=== PATIENT | female | born 1960 | race Caucasian/White ===

== ENCOUNTER 2017-04-24 23:00 | Inpatient (IN) | payer OTHER ==
[~2017-04-24] VITALS: Ht 162.6 cm; Wt 90.7 kg
--- NOTE | ~2017-04-24 | DS ---
Unit #: [id number] #: [id number] Patient: MARILEE ESTRADA [id number] [facility] [address] [place] [address] [id number] I MR#: [id number] NAME: MARILEE ESTRADA ROOM: P207 Age: 57 Sex: F Admission Date: 04/25/2017 : 1960 Discharge Date: 04/29/2017 Attending Physician: Rickey Moyer M.D. Primary Care Physician: Marco Perez M.D. DISCHARGE SUMMARY REASON FOR ADMISSION Marilee is a 57-year-old woman, who presented to the [facility], reporting difficulty with depression and suicidal ideation, cocaine use and chronic pain. She was sent to EPS and then transferred to [facility]. LABORATORY DATA Please see hospital chart. HOSPITAL COURSE Marilee was admitted and placed on suicide precautions. Effexor XR 150 mg daily for depression, Seroquel 100 mg in the morning and 400 mg at bedtime for anxiety and sleep were also started. The patient continued on ReVia 50 mg at bedtime for alcohol prophylaxis. She complained significantly of pain throughout the hospitalization and Motrin was provided with some relief. She also tended to use a wheelchair in the milieu, although she was encouraged not to do so for the purpose of improving her ambulatory abilities. Her mood gradually improved and on the date of discharge, she was able to contract for safety with no suicidal ideation, intent, or plan. DISCHARGE DIAGNOSES AXIS I: Major depression, polysubstance abuse by history. AXIS II: Histrionic personality traits. AXIS III: Chronic pain. AXIS IV: AXIS V: DISCHARGE INSTRUCTIONS [facility] with primary care physician and [facility]. DISCHARGE MEDICATIONS Effexor XR 150 mg daily for depression, Seroquel 100 mg b.i.d. and 400 mg at bedtime for mood stability, ReVia 50 mg at bedtime for alcoholism. CONDITION AT DISCHARGE Improved. PROGNOSIS Fair to good. DIET AND ACTIVITY Unit #: [id number] #: [id number] Patient: MARILEE ESTRADA Per primary care doctor. Dictated by... Rickey Moyer M.D. [facility]/yamile TD: 04/30/2017 03:01 JOB #: [id number] DISCHARGE SUMMARY Page 1 of 1 X Rickey Moyer MD DISCHARGE SUMMARY
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
[~2017-04-24 23:00] MED LIST: AUGMENTIN PO; CELEXA PO; CLEOCIN HCL300 M1 PO; FLEXERIL10 MG PO; HYDROCODONE-APA1 T51 PO; LORTAB 10-5001 EACH PO; ORUDIS75 M1 DOB; PREDNISONE5 M1 DOB; TRAZODONE HCL100 MG PO
[2017-04-25 09:41] LABS: BASOPHIL# 0.1 X10e3 (0-0.3); EOSINOPHIL# 0.3 X10e3 (0-0.7); EOSINOPHIL% 4.4 % (0.0-7.0); HEMATOCRIT 38.9 % (35.0-45.0); HEMOGLOBIN 12.8 gm/dL (12.0-16.0); LYMPHOCYTE# 2.5 X10e3 (1.0-3.5); LYMPHOCYTE% 39.1 % (17.0-45.0); MEAN CELL VOLUME 96.5 FL (83-96); MEAN CORPUSCULAR HEMOGLOBIN 31.9 PG (28-34); MEAN CORPUSCULAR HGB CONC 33.1 g/dL (30-36); MEAN PLATELET VOLUME 8.2 FL (6.5-11.5); MONOCYTE# 0.6 X10e3 (0-1.0); NEUTROPHIL# 2.9 X10e3 (1.5-7.1); NEUTROPHIL% 45.5 % (40-75); PLATELET COUNT 257 X10e3 (140-420); RED BLOOD COUNT 4.03 X10e (3.90-5.30); WHITE BLOOD COUNT 6.3 X10e3 (4.0-10.5)
[2017-04-25 09:44] LABS: DIFF IND NO
[2017-04-25 10:38] LABS: ALBUMIN SERUM 3.6 g/dL (3.5-5.0); BUN/CREATININE RATIO 22.5; CALCIUM SERUM 8.7 mg/dL (8.4-10.2); CREATININE SERUM 0.8 mg/dL (0.6-1.4); GLOM FILT RATE Estimated 83.1 mL/min (>60); POTASSIUM 4.2 mmol/L (3.5-5.1); PROTEIN TOTAL SERUM 6.2 g/dL (6.0-8.3)
== END 2017-04-29 12:43 | disposition home or self-care (01) | DRG 885 ==
LOC: UNDOADMIN 04-25 01:07 → P2S 04-25 01:07
PROVIDERS: Psychiatry & Neurology Psychiatry
DX: F33.2 Major depressive disorder, recurrent severe without psychotic features (principal); E66.01 Morbid (severe) obesity due to excess calories; F60.4 Histrionic personality disorder; G89.29 Other chronic pain; F17.210 Nicotine dependence, cigarettes, uncomplicated
CPT/HCPCS: 80053; 85025

== ENCOUNTER 2017-06-09 21:31 | Emergency (ER) | payer OTHER ==
[~2017-06-09] VITALS: Ht 162.6 cm; Wt 103.4 kg
--- NOTE | ~2017-06-09 | CR20 ---
[facility] A Service of [facility] RADIOLOGY TEXT RESULTS PATIENT: SMITH ESTRADA LOCATION: [facility] : [birth year] UNIT #: [id number] AGE: [address]: Mejia El MD SEX: F ORDER DR: [id number] [facility] [address]. [place], [place] [address] [id number] MR#: [id number] Acc #: [id number] NAME: SMITH ESTRADA : 1960 SEX: F STUDY DATE/TIME: 06/09/2017 22:06 UNIT: [facility] ROOM: STUDY DESCRIPTION: CR Ankle Min 3 Views Lt Attending Physician: Mejia El M.D. Ordering Physician: Osito Taarngo M.D. Primary Care Physician: Marco Perez M.D. MEDICAL IMAGING REPORT This report is preliminary unless electronic signature is present EXAM Left ankle, 3 views. HISTORY Ankle pain and swelling for 2 months. No recent injury. Ankle surgery 2 years ago. FINDINGS Three views of the left ankle demonstrate internal fixation of the distal tibia, with partly visualized intramedullary akosua extending across old healed fracture deformity distal tibial diaphysis. There is also an old fracture deformity of the distal fibular metaphysis. Moderately severe degenerative joint space narrowing in the tibiotalar joint. Generalized demineralization. Probable old screw tracks in the talus and calcaneus. IMPRESSION No acute findings. Old fractures of the distal tibia and fibula. Partly visualized internal fixation of the tibia. Generalized demineralization. No recent fracture. Dictated by... Henri Carolina M.D. THIS IS AN ELECTRONICALLY VERIFIED REPORT Henri Carolina M.D. at 06/11/2017 4:43 AM DFL/ema TD: 06/10/2017 21:59 JOB #: [id number] MEDICAL IMAGING REPORT [facility] A Service of [facility] RADIOLOGY TEXT RESULTS PATIENT: SMITH ESTRADA [facility] #: [id number] : [birth year] UNIT #: [id number] AGE: [address]: Mejia El MD SEX: F ORDER DR: Page 1 of 1 COPY
[2017-06-09 22:42] LABS: BUN/CREATININE RATIO 8.57; CALCIUM SERUM 8.8 mg/dL (8.4-10.2); CREATININE SERUM 0.7 mg/dL (0.6-1.4); GLOM FILT RATE Estimated 97.5 mL/min (>60); POTASSIUM 3.9 mmol/L (3.5-5.1)
[2017-06-09 23:08] LABS: AMPHETAMINE NEG (NEG); BARBITURATES NEG (NEG); BENZODIAZEPINES NEG (NEG); COCAINE NEG (NEG); MARIJUANA NEG (NEG); OPIATES NEG (NEG); TRICYCLIC ANTIDEPRESSANTS NEG (NEG); U METHADONE NEG (NEG)
== END 2017-06-10 03:30 | disposition short-term general hospital (02) ==
LOC: CED 21:31
PROVIDERS: Emergency Medicine
DX: R45.851 Suicidal ideations (principal); F10.10 Alcohol abuse, uncomplicated; Y90.6 Blood alcohol level of 120-199 mg/100 ml; M25.572 Pain in left ankle and joints of left foot; G89.29 Other chronic pain; Z79.899 Other long term (current) drug therapy
CPT/HCPCS: 36415; 73610; 80048; 80307; 99285; G0480

== ENCOUNTER 2017-06-09 23:00 | Inpatient (IN) | payer OTHER ==
[~2017-06-09] VITALS: Ht 162.6 cm; Wt 90.7 kg
--- NOTE | ~2017-06-09 | CO ---
Unit #: [id number] #: [id number] Patient: SMITH ESTRADA [id number] [place] [address] [id number] MR#: [id number] NAME: SMITH ESTRADA ROOM: 71 Age: 57 Sex: F Admission Date: 06/10/2017 : 1960 Attending Physician: Rickey Moyer M.D. Primary Care Physician: Marco Perez M.D. Consultation Date: 06/10/2017 CONSULTATION REPORT ORDERING PROVIDER Dr. Moyer. REASON FOR CONSULTATION Left ankle pain. SUBJECTIVE The patient reports that 2 years ago, she broke her ankle. However, she went back to [facility] a couple of months ago for continued ankle pain and they said that her ankle was still broken. She has had multiple surgeries on this left leg and she is supposed to be seeing Orthopedics. She reports that she is unable to walk very far or for very long and usually uses a wheelchair. She reports decreased range of motion and pain in that left ankle. OBJECTIVE Significant ecchymoses noted on the dorsal side of her left ankle and foot. She has decreased range of motion with flexion and plantar flexion. There is minimal swelling present as well. ASSESSMENT Left ankle pain and swelling. PLAN Plan is to put the patient in a boot and have her follow up with Orthopedics outpatient. Dictated by... Michele Gross/yamile TD: 06/11/2017 01:12 JOB #: [id number] Unit #: [id number] #: [id number] Patient: SMITH ESTRADA CONSULTATION REPORT Page 1 of 1 X ELBERT MUÑOZ APRN CONSULTATION REPORT
--- NOTE | ~2017-06-09 | DS ---
Unit #: [id number] #: [id number] Patient: MARILEE ESTRADA [id number] [place] [address] [id number] I MR#: [id number] NAME: MARILEE ESRTADA ROOM: P171 Age: 57 Sex: F Admission Date: 06/10/2017 : 1960 Discharge Date: 06/15/2017 Attending Physician: Rickey Moyer M.D. Primary Care Physician: Marco Perez M.D. DISCHARGE SUMMARY REASON FOR ADMISSION Marilee is a 57-year-old woman with a history of depression and alcohol abuse who reported that she has had increasing hopeless, helplessness, suicidal ideation. She had also been drinking a six-pack of beer daily. She was admitted for stabilization with a plan to slit her wrist or take a drug overdose. DIAGNOSTIC STUDIES LABORATORY DATA: Please see hospital chart. HOSPITAL COURSE Marilee was admitted and placed on suicide precautions. Her home medications for depression were reinitiated after a period of noncompliance and she was started on the detox protocol for alcohol as well. She complains significantly of back pain throughout the hospitalization and had active detox symptoms. She continued to report suicidal ideation until the day prior to discharge, but participated minimally in psychotherapy groups, continually blaming her low back pain. However, she had a brighter mood and a better affect on the date of discharge and once again contracted for safety in the outpatient setting. DISCHARGE DIAGNOSES AXIS I: Major depression. Alcohol dependence. AXIS II: No diagnosis. AXIS III: Chronic pain. INSTRUCTIONS TO PATIENT Follow up with [facility] and local [facility] programming. DISCHARGE MEDICATIONS 1. Neurontin 600 mg t.i.d. for anxiety. 2. Effexor XR 150 mg b.i.d. for depression. 3. Seroquel 100 mg b.i.d. and 400 mg at bedtime for mood stability. PRIMARY CARE MEDICINE Lortab 10/325 every 4 hours as needed for pain. CONDITION ON DISCHARGE Fair. PROGNOSIS Fair to good. Unit #: [id number] #: [id number] Patient: MARILEE ESTRADA DIET AND ACTIVITY Per primary care doctor. Dictated by... Rickey Moyer M.D. [facility]/lauren TD: 06/20/2017 22:50 JOB #: [id number] DISCHARGE SUMMARY Page 1 of 1 X Rickey Moyer MD DISCHARGE SUMMARY
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
--- NOTE | ~2017-06-09 | PN ---
Unit #: [id number] #: [id number] Patient: MARILEE ESTRADA [id number] [facility] [address] [place] [address] [id number] I MR#: [id number] NAME: MARILEE ESTRADA ROOM: P171 Age: 57 Sex: F Admission Date: 06/10/2017 : 1960 Attending Physician: Rickey Moyer M.D. Admitting Physician: Rickey Moyer M.D. Primary Care Physician: Bibiana Rao PROGRESS NOTES DATE 06/12/2017 DISCUSSION Marilee continues to be somewhat isolative from peers and staff but has been up a little bit. She continues to complain of back pain despite the use of [place] and was encouraged to ambulate in order to assist with relieving this. Her mood is depressed with a congruent affect. She is alert and fully oriented with no evidence of psychosis but ongoing SI. ASSESSMENT 1. Major depression. 2. Polysubstance dependence. PLAN Continue with current medications and detox protocol. Dictated by... Rickey Moyer M.D. /lauren TD: 06/15/2017 22:23 JOB #: [id number] [facility] PROGRESS NOTES Page 1 of 1 X Rickey Moyer MD PROGRESS NOTE
--- NOTE | ~2017-06-09 | PN ---
Unit #: [id number] #: [id number] Patient: MARILEE ESTRADA [id number] [facility] [address] [place] [address] [id number] I MR#: [id number] NAME: MARILEE ESTRADA ROOM: P171 Age: 57 Sex: F Admission Date: 06/10/2017 : 1960 Attending Physician: Rickey Moyer M.D. Admitting Physician: Rickey Moyer M.D. Primary Care Physician: Bibiana Rao PROGRESS NOTES DATE OF SERVICE: 06/13/2017 DISCUSSION Marilee shows some improvement today. She is doing a little better with her depression with a brighter range of affect. She is alert and fully oriented with no evidence of psychosis, but still lingering vague suicidal ideation. ASSESSMENT Major depression. PLAN Continue current treatment plan and precautions. Dictated by... Bibiana FinchH/yamile TD: 06/20/2017 14:51 JOB #: [id number] [facility] PROGRESS NOTES Page 1 of 1 X Rickey Moyer MD PROGRESS NOTE
--- NOTE | ~2017-06-09 | PN ---
Unit #: [id number] #: [id number] Patient: MARILEE ESTRADA [id number] [facility] [address] [place] [address] [id number] I MR#: [id number] NAME: MARILEE ESTRADA ROOM: P171 Age: 57 Sex: F Admission Date: 06/10/2017 : 1960 Attending Physician: Rickey Moyer M.D. Admitting Physician: Rickey Moyer M.D. Primary Care Physician: Bibiana Rao PROGRESS NOTES DATE 06/11/2017 DISCUSSION Marilee continues to be isolative, in bed. She has mild withdrawal symptoms today, but ongoing depression, hopelessness and reports suicidal ideation. She is alert and fully oriented with no evidence of psychosis. ASSESSMENT Major depression, opiate dependence. PLAN Continue current treatment plan and medications. Dictated by... Bibiana Finch/shant TD: 06/15/2017 06:03 JOB #: [id number] [facility] PROGRESS NOTES Page 1 of 1 X Rickey Moyer MD X PROGRESS NOTE
--- NOTE | ~2017-06-09 | PN ---
Unit #: [id number] #: [id number] Patient: MARILEE ESTRADA [id number] [facility] [address] [place] [address] [id number] I MR#: [id number] NAME: MARILEE ESTRADA ROOM: 71 Age: 57 Sex: F Admission Date: 06/10/2017 : 1960 Attending Physician: Rickey Moyer M.D. Admitting Physician: Rickey Moyer M.D. Primary Care Physician: Bibiana Rao PROGRESS NOTES DATE 06/14/2017 DISCUSSION Marilee is showing ongoing improvement. She is compliant with her medications and denies any adverse side effects. She is alert and fully oriented today. Her memory and concentration are fair to good and her thought processes are logical with no active psychosis. ASSESSMENT Major depression. PLAN Continue current treat plan anticipating discharge in the near future. Dictated by... Bibiana Finch/serjio TD: 06/20/2017 03:46 JOB #: [id number] [facility] PROGRESS NOTES Page 1 of 1 X Rickey Moyer MD PROGRESS NOTE
--- NOTE | ~2017-06-09 | HP ---
Unit #: [id number] #: [id number] Patient: SMITH ESTRADA [id number] [place] [address] [id number] MR#: [id number] NAME: SMITH ESTRADA ROOM: P171 Age: 57 Sex: F Admission Date: 06/10/2017 : 1960 Attending Physician: Rickey Moyer M.D. Admitting Physician: Rickey Moyer M.D. Primary Care Physician: Marco Perez M.D. HISTORY AND PHYSICAL HISTORY OF PRESENT ILLNESS The patient is a 57-year-old female admitted to [facility] on 06/10/2017 for suicidal ideations and polysubstance use. PAST MEDICAL HISTORY 1. Obesity. 2. Degenerative disc disease. 3. Chronic pain. 4. Broken ankle. PAST SURGICAL HISTORY Left leg times four. SOCIAL HISTORY She disabled. She lives with her boyfriend. She smokes one pack of cigarettes daily. Drinks a six pack of beer per day and uses cocaine. FAMILY MEDICAL HISTORY Noncontributory. ALLERGIES No known drug allergies. CURRENT MEDICATIONS 1. Seroquel 2. Effexor 3. [place] 4. Gabapentin REVIEW OF SYSTEMS CONSTITUTIONAL: No fever or chills. HEENT: Denies any sore throat, ear pain or runny nose. CARDIOVASCULAR: Denies chest pain, irregular heart rhythm or palpitations. CHEST: Denies shortness of breath or cough. No hemoptysis. GASTROINTESTINAL: Denies nausea, vomiting, diarrhea or chronic constipation. ENDOCRINE: Denies history of increased thirst or urination. No recent significant weight loss or gain. GENITOURINARY: Denies dysuria, frequency, or hematuria. SKIN: Denies any rashes. HEMATOLOGIC: Denies history of increased bleeding or bruising. EXTREMITIES: She complains of left ankle pain and swelling. Unit #: [id number] #: [id number] Patient: SMITH ESTRADA NEUROLOGIC: Denies problems with vision or speech. No frequent, severe headaches. No numbness, tingling or weakness in any extremities. Denies loss of bladder or bowel control. PHYSICAL EXAM GENERAL: She is awake, alert and oriented in no acute distress. VITAL SIGNS: Temperature 98.2, heart rate 79, respiration 22, blood pressure 142/87. HEIGHT: 5'4". WEIGHT: 200 pounds. SKIN: Warm and dry without rash or lesion. HEENT: Normocephalic. TMs not viewed. Oral and nasal passages clear. Conjunctivae clear. PERRLA. EOMs intact. NECK: Supple without lymphadenopathy or thyromegaly. HEART: Regular rate and rhythm without murmur. LUNGS: Clear. ABDOMEN: Soft, nontender. : Not done. EXTREMITIES: No evidence of cyanosis, clubbing or edema. Moves all without focal deficit. NEUROLOGICAL: Grossly within normal limits. Cranial Nerves: II: Visual villaseñro are intact. III, IV AND : Extraocular movements are intact. Pupils are equal, round and reactive to light. V: Facial sensation is grossly normal. VII: Facial movements and expression are normal. VIII: Auditory acuity grossly intact. IX, X: Uvula is midline. Phonation is normal. XI: Patient shrugs shoulders and turns head normally. XII: Tongue protrudes in the midline. Sensory and Motor Function: Sensory and motor sensation is grossly normal. Motor: moves all extremities well. IMPRESSION 1. Psychiatric admission. 2. Polysubstance use. 3. Obesity. 4. Degenerative disc disease. 5. Chronic pain. 6. Broken ankle. RECOMMENDATIONS Psychiatric per psychiatrist. MEDICAL: No contraindication to participate in facility activities. MEDICAL PROGNOSIS Fair. MEDICAL CONDITION Stable. Dictated by... Xenia Rizzo A.P.R.N. Unit #: [id number] #: [id number] Patient: CYNDEE SPRINGERSMITH MILLER/serjio TD: 06/11/2017 02:23 JOB #: [id number] HISTORY AND PHYSICAL Page 1 of 1 X XENIA RIZZO APRN HISTORY AND PHYSICAL
[2017-06-11 09:51] LABS: BASOPHIL% 0.8 % (0-2.5); EOSINOPHIL# 0.3 X10e3 (0-0.7); EOSINOPHIL% 5.2 % (0.0-7.0); HEMATOCRIT 38.6 % (35.0-45.0); HEMOGLOBIN 12.7 gm/dL (12.0-16.0); LYMPHOCYTE# 2.4 X10e3 (1.0-3.5); LYMPHOCYTE% 41.4 % (17.0-45.0); MEAN CELL VOLUME 98.5 FL (83-96); MEAN CORPUSCULAR HEMOGLOBIN 32.3 PG (28-34); MEAN CORPUSCULAR HGB CONC 32.8 g/dL (30-36); MEAN PLATELET VOLUME 7.8 FL (6.5-11.5); MONOCYTE# 0.5 X10e3 (0-1.0); NEUTROPHIL# 2.6 X10e3 (1.5-7.1); NEUTROPHIL% 44.6 % (40-75); PLATELET COUNT 252 X10e3 (140-420); RED BLOOD COUNT 3.92 X10e (3.90-5.30); RED CELL DISTRIBUTION WIDTH 13.7 % (11.0-15.5); WHITE BLOOD COUNT 5.9 X10e3 (4.0-10.5)
[2017-06-11 09:53] LABS: DIFF IND NO
[2017-06-11 09:58] LABS: ALBUMIN SERUM 3.2 g/dL (3.5-5.0); BILIRUBIN,TOTAL 0.5 mg/dL (0.2-2.0); BUN/CREATININE RATIO 13.75; CALCIUM SERUM 8.8 mg/dL (8.4-10.2); CREATININE SERUM 0.8 mg/dL (0.6-1.4); GLOM FILT RATE Estimated 83.1 mL/min (>60); POTASSIUM 4.3 mmol/L (3.5-5.1); PROTEIN TOTAL SERUM 5.6 g/dL (6.0-8.3)
[2017-06-13 09:49] LABS: URINE APPEARANCE CLOUDY; URINE BILIRUBIN NEG (NEG); URINE BLOOD NEG (NEG); URINE COLOR DK YELLOW; URINE GLUCOSE NEG (NEG); URINE KETONE NEG (NEG); URINE LEUKOCYTE ESTERASE 1+ (NEG); URINE NITRATE POS (NEG); URINE PH 6.5 (5-8); URINE PROTEIN NEG (NEG); URINE SPECIFIC GRAVITY 1.024 (1.003-1.035); URINE UROBILINOGEN 0.2 MG/DL (NEG)
[2017-06-13 09:52] LABS: URINE BACTERIA AUWI 1+ (NEGATIVE); URINE SQUAMOUS EPITHELIAL CELL MOD /[HPF]
[2017-06-13 10:53] LABS: AMPHETAMINE NEG (NEG); BARBITURATES NEG (NEG); BENZODIAZEPINES POS (NEG); COCAINE NEG (NEG); MARIJUANA NEG (NEG); OPIATES POS (NEG); TRICYCLIC ANTIDEPRESSANTS POS (NEG); U METHADONE NEG (NEG)
[2017-06-13 11:12] LABS: URINE CRYSTALS CALCIUM OXALATE /[HPF]
[2017-06-13 11:13] LABS: URINE MUCUS PRESENT
[2017-06-13 11:15] LABS: URBCS1 AUWI 0-2 /[HPF] (0-2)
== END 2017-06-15 16:00 | DRG 897 ==
LOC: P1E 06-10 04:06
PROVIDERS: Psychiatry & Neurology Psychiatry
PROC: HZ2ZZZZ Detoxification Services for Substance Abuse Treatment (ICD-10-PCS; principal; 2017-06-10)
DX: F19.20 Other psychoactive substance dependence, uncomplicated (principal); F11.20 Opioid dependence, uncomplicated; R45.851 Suicidal ideations; F32.9 Major depressive disorder, single episode, unspecified; G89.29 Other chronic pain; F60.4 Histrionic personality disorder; Z81.8 Family history of other mental and behavioral disorders; F17.210 Nicotine dependence, cigarettes, uncomplicated; E66.9 Obesity, unspecified; M25.572 Pain in left ankle and joints of left foot
CPT/HCPCS: 80053; 80307; 81003; 85025; 86592